=== PATIENT | male | born 1995 | race Caucasian/White ===

== ENCOUNTER 2017-02-24 12:05 | Emergency (ER) | payer OTHER ==
[2017-02-24 12:12] VITALS: BP 123/60; PULSE 72; TEMP 97.7; BMI 26.6
[2017-02-24] MEDS ORDERED: SULFAMETHOXAZOLE/TRIMETHOPRIM 800MG/160MG D.S. TABLET PO ONE (12:36)
[2017-02-24] MEDS ORDERED: SULFAMETHOXAZOLE/TRIMETHOPRIM 800MG/160MG D.S. TABLET ONE (12:38)
--- NOTE | 2017-02-24 12:42 | PDOC ---
History of Present Illness - General Chief Complaint: Wound Infection Stated Complaint: RT THIGH WOUND Time Seen by Provider: 02/24/17 12:13 Exam Limitations: No Limitations - History of Present Illness Initial Comments: 02/24/17 12:37 21 yo M wtih no pmhx here with c/o infected hair follicle right thigh. mild redness. . noticed 2 days ago. no f/c. no pain, was trying to drain it but didn' t get anything out of it. no mod factor.s believes he was exposed to staph at [employer] [facility]. Past History - Past Medical History Allergies/Adverse Reactions: Allergies Allergy/AdvReac Type Severity Reaction Status Date / Time No Known Allergies Allergy Verified 02/24/17 12:07 Home Medications: Ambulatory Orders Sulfamethoxazole/Trimethoprim [Bactrim Ds Tablet] 1 each PO BID #14 tablet 02/24 Other medical history: DENIES - Immunization History Immunization Up to Date: Yes - Psycho/Social/Smoking Cessation Hx Anxiety: No Suicidal Ideation: No Smoking Status: No Smoking History: Never smoked Have you smoked in the past 12 months: No Number of Cigarettes Smoked Daily: 0 Information on smoking cessation initiated: No Hx Alcohol Use: No Drug/Substance Use Hx: No Substance Use Type: None Review of Systems - Review of Systems Constitutional: No: Chills, Diaphoresis Respiratory: No: Cough Cardiac (ROS): No: Chest Pain Musculoskeletal: No: Back Pain Integumentary: Yes: Other (red lesion/ boil) All Other Systems: Reviewed and Negative *Physical Exam - Vital Signs Last Vital Signs Temp Pulse Resp BP Pulse Ox 97.7 F 72 20 123/60 100 02/24/17 12:06 02/24/17 12:06 02/24/17 12:06 02/24/17 12:06 02/24/17 12:06 - Physical Exam General Appearance: Yes: Appropriately Dressed Neck: positive: Trachea midline Respiratory/Chest: positive: Lungs Clear, Normal Breath Sounds. negative: Chest Tender Cardiovascular: positive: Regular Rhythm, Regular Rate, S1, S2 Gastrointestinal/Abdominal: positive: Normal Bowel Sounds Integumentary: positive: Normal Color, Dry, Warm, Other (right thigh with small indurated area 0.5 cm x 0.5 cm. no expressable purulence. no surrounding erythema. ) Neurologic: positive: Fully Oriented, Alert, Normal Mood/Affect Medical Decision Making - Medical Decision Making 02/24/17 12:39 folliculutiis. no abscess sizable enough to drain. plan tx with warm compress, bactrim and topical bacitracin. *DC/Admit/Observation/Transfer Diagnosis at time of Disposition: Folliculitis - Discharge Dispostion Disposition: HOME Condition at time of disposition: Improved Admit: No - Prescriptions Prescriptions: Sulfamethoxazole/Trimethoprim [Bactrim Ds Tablet] 1 each PO BID #14 tablet - Patient Instructions Printed Discharge Instructions: Folliculitis Additional Instructions: TAKE bACTRIM TWICE DAILY X 7 DAYS. RETURN FOR WORSENING REDNESS, SWELLING OR ANY CONCERNS. APPLY WARM COMPRESS TWICE DAILY OR SOAK IN TUB TWICE DAILY. APPLY TOPICAL BACITRACIN OINTMENT. RETURN FOR ANY PROBLEMS OR CONCERNS.
== END 2017-02-24 12:45 | disposition home or self-care (01) ==
LOC: FER 12:05
DX: L73.9 Follicular disorder, unspecified (principal)
CPT/HCPCS: 99281-25

== ENCOUNTER 2017-02-26 14:05 | Emergency (ER) | payer OTHER ==
[2017-02-26 14:15] VITALS: BP 122/55; PULSE 77; TEMP 98.1; BMI 26.6
--- NOTE | 2017-02-26 14:18 | PDOC ---
History of Present Illness - General History Source: Patient Exam Limitations: No Limitations - History of Present Illness Initial Comments: 02/26/17 14:46 The patient is a 21 year old male, with no significant past medical history but was seen in the ED 2 days ago with a wound infection on the right thigh. He was discharged with a 7 day prescription of Bactrim. The patient returned today for a wound check. He states that the redness has decreased and the wound is draining small amounts of bloody fluid. He has been compliant with the antibiotics and applying bacitracin. He notes that he has applied some warm compresses, but not often. He denies fever, chills, nausea, vomiting.The patient does not have a PCP and states that he will return if the wound worsens. <Breann Lopez - Last Filed: 02/26/17 15:00> <Viktoriya Douglas - Last Filed: 02/26/17 15:09> - General Chief Complaint: Revisit,Wound Recheck Stated Complaint: RIGHT THIGH WOUND CHECK Time Seen by Provider: 02/26/17 14:17 Past History <Breann Lopez - Last Filed: 02/26/17 15:00> - Immunization History Immunization Up to Date: Yes - Psycho/Social/Smoking Cessation Hx Anxiety: No Suicidal Ideation: No Smoking Status: No Smoking History: Never smoked Have you smoked in the past 12 months: No Number of Cigarettes Smoked Daily: 0 Hx Alcohol Use: No Drug/Substance Use Hx: No Substance Use Type: None <Viktoriya Douglas - Last Filed: 02/26/17 15:09> - Past Medical History Allergies/Adverse Reactions: Allergies Allergy/AdvReac Type Severity Reaction Status Date / Time No Known Allergies Allergy Verified 02/26/17 14:16 Home Medications: Ambulatory Orders Sulfamethoxazole/Trimethoprim [Bactrim Ds Tablet] 1 each PO BID #14 tablet 02/24 Review of Systems - Review of Systems Able to Perform ROS?: Yes Comments:: 02/26/17 14:47 GENERAL/CONSTITUTIONAL: No fever or chills. No weakness. HEAD, EYES, EARS, NOSE AND THROAT: No change in vision. No ear pain or discharge. No sore throat. CARDIOVASCULAR: No chest pain or shortness of breath. RESPIRATORY: No cough, wheezing, or hemoptysis. GASTROINTESTINAL: No nausea, vomiting, diarrhea or constipation. GENITOURINARY: No dysuria, frequency, or change in urination. MUSCULOSKELETAL: No joint or muscle swelling or pain. No neck or back pain. SKIN: +draining wound on the right thigh. NEUROLOGIC: No headache, vertigo, loss of consciousness, or change in strength/ sensation. ENDOCRINE: No increased thirst. No abnormal weight change. HEMATOLOGIC/LYMPHATIC: No anemia, easy bleeding, or history of blood clots. ALLERGIC/IMMUNOLOGIC: No hives or skin allergy. <Breann Lopez - Last Filed: 02/26/17 15:00> *Physical Exam - Vital Signs Last Vital Signs Temp Pulse Resp BP Pulse Ox 98.1 F 77 15 122/55 100 02/26/17 14:11 02/26/17 14:11 02/26/17 14:11 02/26/17 14:11 02/26/17 14:11 - Physical Exam Comments: 02/26/17 14:47 GENERAL: Awake, alert, and fully oriented, in no acute distress HEAD: No signs of trauma EYES: PERRLA, EOMI, sclera anicteric, conjunctiva clear ENT: Auricles normal inspection, hearing grossly normal, nares patent, oropharynx clear without exudates. Moist mucosa NECK: Normal ROM, supple, no lymphadenopathy, JVD, or masses LUNGS: Breath sounds equal, clear to auscultation bilaterally. No wheezes, and no crackles HEART: Regular rate and rhythm, normal S1 and S2, no murmurs, rubs or gallops ABDOMEN: Soft, nontender, normoactive bowel sounds. No guarding, no rebound. No masses EXTREMITIES: Normal range of motion, gauze with serosanguinous drainage removed from over R medial distal thigh 0.5 x 0.5cm wound with no surrounding erythema ( pt states was present previously). No active drainage from 1mm central opening, no fluctuance. When wound expressed, no drainage from opening. 2+ peripheral pulses. NEUROLOGICAL: Normal speech, cranial nerves intact, negative pronator drift, 5/ 5 strength in all 4 extremities, normal sensation to light touch in all 4 extremities, normal cerebellar exam, normal gait, normal reflexes and tone SKIN: Warm, Dry, normal turgor, no rashes or lesions noted. <Breann Lopez - Last Filed: 02/26/17 15:00> - Vital Signs Last Vital Signs Temp Pulse Resp BP Pulse Ox 98.1 F 77 15 122/55 100 02/26/17 14:11 02/26/17 14:11 02/26/17 14:11 02/26/17 14:11 02/26/17 14:11 <Viktoriya Douglas - Last Filed: 02/26/17 15:09> Medical Decision Making - Medical Decision Making 02/26/17 14:48 21-year-old male presents for wound check of right thigh wound. On exam, wound appears to be draining serosanguinous fluid and patient reports improvement in erythema and pain of the lesion. Likely improving infection stemming from infected hair follicle. I advised the patient to continue taking Bactrim, applying bacitracin and applying warm compresses more frequently. I discussed with the patient what to look out for in terms of improvement or worsening of the infection such increased redness, drainage, swelling, pain, fevers, or chills. I advised him to return to the emergency department if the redness, pain , swelling or drainage increase or get worse or if he has any new or concerning symptoms. I discussed the physical exam findings and final diagnoses with the patient. I answered all of the patient's questions. The patient was satisfied with the care received and felt comfortable with the discharge plan and treatment plan. <Viktoriya Douglas - Last Filed: 02/26/17 15:09> *DC/Admit/Observation/Transfer - Attestations Scribe Attestion: 02/26/17 14:48 Documentation prepared by JT Dukes, acting as medical leader for Viktoriya Douglas MD. <Breann Lopez - Last Filed: 02/26/17 15:00> - Discharge Dispostion Admit: No - Attestations Physician Attestion: 02/26/17 14:33 I, Dr. Viktoriya Douglas MD, attest that this document has been prepared under my direction and personally reviewed by me in its entirety. I further attest, that it accurately reflects all work, treatment, procedures and medical decision -making performed by me. <Viktoriya Douglas - Last Filed: 02/26/17 15:09> Diagnosis at time of Disposition: Folliculitis - Discharge Dispostion Disposition: HOME Condition at time of disposition: Good - Patient Instructions Printed Discharge Instructions: DI for Wound Infection Additional Instructions: Please return to the emergency department immediately if you notice any increasing swelling, redness, or pain to the boil or if you have any new or concerning symptoms. Continue to take the bactrim as prescribed, apply the bacitracin as prescribed and apply warm compresses frequently.
== END 2017-02-26 14:41 | disposition home or self-care (01) ==
LOC: FER 14:05
DX: L73.9 Follicular disorder, unspecified (principal)
CPT/HCPCS: 99281-25